=== PATIENT | female | born 1970 | race American Indian/Alaskan Native ===

== ENCOUNTER 2021-04-03 08:25 | Emergency (ER) | payer SELFPAY ==
--- NOTE | 2021-04-03 10:07 | XRay Report ---
XR chest routine 2V INDICATION / CLINICAL INFORMATION: chest pain. COMPARISON: None available. FINDINGS: SUPPORT DEVICES: None. HEART /PULMONARY VASCULATURE: No significant abnormality. LUNGS / PLEURA: No significant pulmonary or pleural abnormality. No pneumothorax. ADDITIONAL FINDINGS: No significant additional findings. IMPRESSION: 1. No acute findings. Signer Name: Og Garcia MD Signed: 04/03/2021 10:02 AM Workstation Name: [id number]
--- NOTE | 2021-04-03 10:29 | Emergency Department Report ---
ED Chest Pain HPI - General Chief Complaint: Chest Pain Stated Complaint: COUGHING, SORE THROAT, CHEST PAIN Time Seen by Provider: 04/03/21 10:18 Source: patient Mode of arrival: Ambulatory Limitations: No Limitations - History of Present Illness Initial Comments: 50-year-old -[place] female with a past medical history of hypertension presents to the ER today with complaints of substernal chest pain. Patient states that the pain started yesterday. Has been intermittent in nature. She describes it as an achy pain nonradiating. She states nothing seems to make it worse or better. She denies any associated nausea or vomiting. She states that she did have a cold last week, continues to have a residual productive cough with yellow sputum and she states that when she coughs she gets short of breath. She states that she was exposed to her daughter was COVID-19 positive. She did take the home COVID-19 test kit and was negative. She reports no wheezing. She states that she had fever last week but this has since resolved. She reports generalized fatigue but no abdominal pain, bowel changes, calf pain or lower extremity swelling or any additional symptoms. She states that she is a social drinker. She does not smoke. She denies any prior history of heart disease or lung disease. She states that her grandmother did have bypass surgery in his 50s. MD Complaint: chest pain -: Gradual, days(s) (1) - Related Data Previous Rx's Medication Instructions Recorded Last Taken Type Acetaminophen/Codeine [Tylenol 1 tab PO Q6H PRN #12 tab 04/03/21 Unknown Rx /Codeine # 3 tab] Albuterol Mdi (or & Nicu Only) 2 puff IH QID PRN #8.5 gram 04/03/21 Unknown Rx [ProAir HFA Inhaler] Benzonatate [Tessalon Perles] 100 mg PO Q8HR PRN #30 capsule 04/03/21 Unknown Rx methylPREDNISolone [Medrol 4MG 4 mg PO DAILY #1 tab.ds.pk 04/03/21 Unknown Rx DOSEPAK (21 tabs)] Allergies Allergy/AdvReac Type Severity Reaction Status Date / Time No Known Allergies Allergy Unverified 04/03/21 09:32 Heart Score - HEART Score History: Slightly suspicious EKG: Normal Age: 45-65 Risk factors: 1-2 risk factors Troponin: < normal limit HEART Score: 2 - EKG Read Time Time EKG Completed: 09:42 EKG Read Time: 09:49 - Critical Actions Critical Actions: 0-3 pts:0.9-1.7%risk of adverse cardiac event.Candidate for discharge ED Review of Systems ROS: Stated complaint: COUGHING, SORE THROAT, CHEST PAIN Other details as noted in HPI Comment: All other systems reviewed and negative Constitutional: no symptoms reported. denies: chills, diaphoresis, fever, malaise, weakness Eyes: denies: eye pain, eye discharge, vision change ENT: throat pain. denies: ear pain Respiratory: cough, shortness of breath (with coughing ). denies: wheezing Cardiovascular: chest pain. denies: palpitations, dyspnea on exertion, orthop shon, edema, syncope, paroxysmal nocturnal dyspnea Gastrointestinal: denies: abdominal pain, nausea, vomiting, diarrhea, constipation, hematemesis, melena, hematochezia Genitourinary: denies: urgency, dysuria, frequency, hematuria, discharge, abnormal menses, dyspareunia Musculoskeletal: denies: back pain, joint swelling, arthralgia Skin: denies: rash, lesions, change in color, change in hair/nails, pruritus Neurological: denies: headache, weakness, numbness, paresthesias, confusion, abnormal gait, vertigo Psychiatric: denies: anxiety, depression, auditory hallucinations, visual hallucinations, homicidal thoughts, suicidal thoughts Hematological/Lymphatic: denies: easy bleeding, easy bruising, swollen glands ED Past Medical Hx - Medications Home Medications: Home Medications Medication Instructions Recorded Confirmed Last Taken Type Acetaminophen/Codeine [Tylenol 1 tab PO Q6H PRN #12 tab 04/03/21 Unknown Rx /Codeine # 3 tab] Albuterol Mdi (or & Nicu Only) 2 puff IH QID PRN #8.5 gram 04/03/21 Unknown Rx [ProAir HFA Inhaler] Benzonatate [Tessalon Perles] 100 mg PO Q8HR PRN #30 capsule 04/03/21 Unknown Rx methylPREDNISolone [Medrol 4MG 4 mg PO DAILY #1 tab.ds.pk 04/03/21 Unknown Rx DOSEPAK (21 tabs)] ED Physical Exam - General Limitations: No Limitations General appearance: alert, in no apparent distress - Head Head exam: Present: atraumatic, normocephalic, normal inspection - Eye Eye exam: Present: normal appearance, PERRL, EOMI Pupils: Present: normal accommodation - Neck Neck exam: Present: normal inspection, full ROM - Respiratory Respiratory exam: Present: normal lung sounds bilaterally, chest wall tenderness (sternal and lower ribs bilaterally ). Absent: respiratory distress, wheezes, rales, rhonchi - Cardiovascular Cardiovascular Exam: Present: regular rate, normal rhythm, normal heart sounds - GI/Abdominal GI/Abdominal exam: Present: soft. Absent: distended, tenderness, guarding, rebound - Extremities Exam Extremities exam: Present: normal inspection, full ROM. Absent: calf tenderness - Neurological Exam Neurological exam: Present: alert, oriented X3, CN II-XII intact, normal gait - Psychiatric Psychiatric exam: Present: normal affect, normal mood - Skin Skin exam: Present: intact ED Course Vital Signs 04/03/21 04/03/21 09:33 14:12 Temperature 98.9 F Pulse Rate 89 100 H Respiratory 15 16 Rate Blood Pressure 155/90 Blood Pressure 169/94 [Left] O2 Sat by Pulse 98 97 Oximetry ED Medical Decision Making - Lab Data Result diagrams: 04/03/21 10:22 04/03/21 10:22 - EKG Data EKG shows normal: sinus rhythm Rate: normal (86) - EKG Data Interpretation: normal EKG - Radiology Data Radiology results: report reviewed Patient: EVETTE GUARDADO MR#: [id number] : 1970 Acct:[id number] Age/Sex: 50 / F ADM Date: 04/03/21 Loc: ED Attending Dr: Ordering Physician: DUNIA TIMMONS Date of Service: 04/03/21 Procedure(s): XR chest routine 2V Accession Number(s): [id number] cc: DUNIA TIMMONS Fluoro Time In Minutes: XR chest routine 2V INDICATION / CLINICAL INFORMATION: chest pain. COMPARISON: None available. FINDINGS: SUPPORT DEVICES: None. HEART /PULMONARY VASCULATURE: No significant abnormality. LUNGS / PLEURA: No significant pulmonary or pleural abnormality. No pneumothorax. ADDITIONAL FINDINGS: No significant additional findings. IMPRESSION: 1. No acute findings. Signer Name: Norma Garcia MD Signed: 04/03/2021 10:02 AM Workstation Name: [id number] Transcribed By: JS Dictated By: NORMA GARCIA MD Electronically Authenticated By: NORMA GARCIA MD Signed Date/Time: 04/03/211001 DD/ 01 TD/TT: - Medical Decision Making Chest x-ray shows nothing acute. All labs reviewed--CBC and CMP unremarkable. Troponin x2 normal. EKG does not suggest STEMI, acute ischemic changes or significant dysrhythmias. Patient currently resting comfortably in recliner. She is not toxic or ill-appearing. She is not in any significant pain or respiratory distress. She is neurologically intact with a normal gait. The history, exam, diagnostic testing and current condition do not suggest that this patient is having acute myocardial infarction, significant arrhythmia, unstable angina, esophageal perforation, pulmonary embolism (PERC 0), aortic dissection, pneumothorax, severe pneumonia, sepsis or other significant pathology that would warrant further testing, continued ED treatment, admission or cardiology or other specialist consultation at this time. Suspect that her symptoms could also be respiratory related as she has had a cold and cough few days. She also has reproducible chest wall tenderness on exam and could be related to chest wall pain. Discussed all results with patient, discussed treatment plan with patient and recommend follow-up with her primary care doctor either this week or early next week but at this time there is no indication for admission to the hospital or emergent cardiology consult or any additional testing. Patient understands to return if anything worsens or changes. Patient expressed understanding and agree with plan. Patient stable discharge. Critical care attestation.: If time is entered above; I have spent that time in minutes in the direct care of this critically ill patient, excluding procedure time. ED Disposition Clinical Impression: Nonspecific chest pain, Chest wall pain, Acute bronchitis Disposition: HOME / SELF CARE / HOMELESS Is pt being admited?: No Does the pt Need Aspirin: No Condition: Stable Instructions: Chest Wall Pain, [id number], Nonspecific Chest Pain, Adult, Acute Bronchitis, Adult, Acute Bronchitis (ED) Additional Instructions: I recommend that you take the Tessalon Perles as prescribed to help with cough. Use albuterol inhaler as prescribed to help with any coughing spells, shortness of breath or chest tightness. Take the Medrol Dosepak as prescribed. Take the Tylenol 3 as prescribed to help with any pain. I do recommend that you follow- up closely with your primary care doctor next week. Return to the ER if your symptoms worsens or changes in any way. Prescriptions: methylPREDNISolone [Medrol 4MG DOSEPAK (21 tabs)] 4 mg PO DAILY #1 tab.ds.pk Albuterol Mdi (or & Nicu Only) [ProAir HFA Inhaler] 2 puff IH QID PRN #8.5 gram PRN Reason: Shortness Of Breath Benzonatate [Tessalon Perles] 100 mg PO Q8HR PRN #30 capsule PRN Reason: Cough Acetaminophen/Codeine [Tylenol /Codeine # 3 tab] 1 tab PO Q6H PRN #12 tab PRN Reason: Pain , Severe (7-10) Referrals: PRIMARY CARE,MD [Primary Care Provider] - 3-5 Days Forms: Work/School Release Form(ED) Time of Disposition: 14:07
[2021-04-03 10:44] LABS: Basophils % (Auto) 1.4 % (0.0-1.8); Lymphocytes # (Auto) 1.3 K/mm3 (1.2-5.4); Lymphocytes % (Auto) 40.5 % (13.4-35.0); Mean Corpuscular HGB Conc 30 % (30-34); Monocytes # (Auto) 0.2 K/mm3 (0.0-0.8); Monocytes % (Auto) 6.6 % (0.0-7.3); Platelet Count 212 K/mm3 (140-440); Red Blood Count 5.34 M/mm3 (3.65-5.03); Red Cell Distribution Width 16.9 % (13.2-15.2)
[2021-04-03 10:53] LABS: Hematocrit 37.2 % (30.3-42.9); Hemoglobin 11.1 gm/dl (10.1-14.3); Mean Corpuscular Volume 70 fl (79-97)
[2021-04-03 11:03] LABS: Alanine Aminotransferase 20 units/L (7-56); Albumin 4.1 g/dL (3.9-5); BUN/Creatinine Ratio 10; Blood Urea Nitrogen 8 mg/dL (7-17); Calcium 9.2 mg/dL (8.4-10.2); Hemolysis Index 4
--- NOTE | 2021-04-03 11:14 | Electrocardiograph Report ---
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
[2021-04-03] MEDS ORDERED: ASPIRIN 325 MG TAB PO ONE (11:22)
[2021-04-03] MEDS ORDERED: HYDROcodone/ACETAMINOPHEN 5-325 MG TAB PO ONE (13:54)
[2021-04-03 14:15] VITALS: BP 169/94
== END 2021-04-03 14:12 | disposition home or self-care (01) ==
LOC: ED 08:25
DX: J20.9 Acute bronchitis, unspecified (principal); I10 Essential (primary) hypertension
CPT/HCPCS: 36415; 71046; 80053; 83690; 84484; 85025; 93005; 99284